=== PATIENT | male | born 1970 | race African-American/Black ===

== ENCOUNTER 2019-09-18 08:23 | Day surgery (SDC) | payer BC ==
[2019-09-15 15:47] VITALS: BMI 35.4
[2019-09-18 09:56] VITALS: TEMP 97.8
[2019-09-18 10:35] VITALS: BP 139/70; PULSE 77
--- NOTE | 2019-09-19 16:12 | PATH ---
Surgical Pathology Report Patient Name: OLGA SPARKS [facility]. Rec. #: [id number] /Age/Gender: 1970 (Age: 49) / M Account: [id number] Location: U-ENDOSCOPY Taken: 09/18/2019 Received: 09/18/2019 Reported: 09/19/2019 Physicians: Sacha Parr M.D. Specimen(s) Received A: DESCENDING COLON POLYP B: SIGMOID POLYP C: RECTUM POLYP Clinical History Screening Postoperative diagnosis: Colon polyps, hemorrhoids Final Diagnosis A. DESCENDING COLON POLYP, POLYPECTOMY: HYPERPLASTIC POLYP. B. SIGMOID POLYP, POLYPECTOMY: TUBULAR ADENOMA. C. RECTUM POLYP, POLYPECTOMY: HYPERPLASTIC POLYP. Electronically Signed Johan Ferguson M.D. Gross Description A. Received in formalin labeled "descending colon polyp," is a 0.9 cm greatest dimension salvador, polypoid portion of soft tissue. The specimen is bisected and entirely submitted in one cassette. B. Received in formalin, labeled "sigmoid polyp biopsy" are 3 salvador, irregular portions of soft tissue ranging from 0.1-0.3 cm. in greatest dimension. The specimens are submitted in toto in one cassette. C. Received in formalin, labeled "rectum polyp biopsy" is a salvador, irregular portion of soft tissue measuring 0.3 cm. in greatest dimension. The specimen is submitted in toto in one cassette. 09/18/2019 saudi09/18/2019
== END 2019-09-18 10:36 | disposition home or self-care (01) ==
LOC: JASU-ENDO 08:23
PROVIDERS: ATTEND Internal Medicine Gastroenterology
PROC: 0DBP8ZX Excision of Rectum, Via Natural or Artificial Opening Endoscopic, Diagnostic (ICD-10-PCS; 2019-09-18)
PROC: 0DBN8ZX Excision of Sigmoid Colon, Via Natural or Artificial Opening Endoscopic, Diagnostic (ICD-10-PCS; 2019-09-18)
PROC: 0DBM8ZX Excision of Descending Colon, Via Natural or Artificial Opening Endoscopic, Diagnostic (ICD-10-PCS; principal; 2019-09-18 09:00)
DX: Z12.11 Encounter for screening for malignant neoplasm of colon (principal); D12.4 Benign neoplasm of descending colon; D12.5 Benign neoplasm of sigmoid colon; K62.1 Rectal polyp; K64.8 Other hemorrhoids; I10 Essential (primary) hypertension; E78.5 Hyperlipidemia, unspecified; E66.9 Obesity, unspecified; Z68.35 Body mass index [BMI] 35.0-35.9, adult
CPT/HCPCS: 88305-TC